=== PATIENT | female | born 1955 | race Asian ===

== ENCOUNTER 2016-10-16 13:36 | Emergency (ER) | payer OTHER ==
[~2016-10-16] VITALS: Ht 162.6 cm; Wt 83.0 kg
[~2016-10-16 13:36] MED LIST: ATOR40TA68 PO; GABA300C16 PO; HYDR12.58 PO; LOSA25TA5 PO; METF500T4 PO; TRAM-40 PO; TRAM50TA2 PO; VENL-42 PO
[2016-10-16 13:43] VITALS: Ht 162.6 cm; Wt 83.0 kg
[2016-10-16] MEDS ORDERED: KETOROLAC 30 MG INJ IM STA (14:32)
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
[2016-10-16] MEDS ORDERED: PRED20TA PO (14:47)
[2016-10-16] MEDS ORDERED: predniSONE 20 MG TAB PO ONE (15:00)
== END 2016-10-16 15:37 | disposition home or self-care (01) ==
LOC: FTE 13:36
DX: M54.2 Cervicalgia (principal); M79.602 Pain in left arm; I10 Essential (primary) hypertension; E11.9 Type 2 diabetes mellitus without complications; Z79.84 Long term (current) use of oral hypoglycemic drugs
CPT/HCPCS: 93005; 96372; J1885; J7512; Z7502

== ENCOUNTER 2017-02-21 12:12 | Emergency (ER) | payer OTHER ==
[~2017-02-21] VITALS: Wt 77.2 kg
[~2017-02-21 12:12] MED LIST changes: +PRED20TA PO
[2017-02-21] MEDS ORDERED: KETOROLAC 30 MG INJ IM STA (13:15)
[2017-02-21] MEDS ORDERED: HYDROCODONE/APAP (5/325) TAB PO ONE (13:30)
[2017-02-21] MEDS ORDERED: predniSONE 20 MG TAB PO ONE (13:30)
[2017-02-21] MEDS ORDERED: HYDR-906 PO (14:02)
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
== END 2017-02-21 14:25 | disposition home or self-care (01) ==
LOC: FTE 12:12
DX: M79.601 Pain in right arm (principal); M79.602 Pain in left arm; M25.512 Pain in left shoulder
CPT/HCPCS: 93005; 96372; J1885; J7512; Z7502; Z7610